=== PATIENT | male | born 1935 | race Caucasian/White ===

== ENCOUNTER 2017-03-09 10:07 | Emergency (ER) | payer OTHER ==
[~2017-03-09] VITALS: Ht 170.2 cm; Wt 93.0 kg
[~2017-03-09 10:07] MED LIST: ARTHROTEC EC 71 EAC1 PO; ASPIRIN81 M2 PO; ATACAND HCT 321 EACH PO; CARDURA XL4 MG PO; CLARITIN10 MG PO; CLONADINE PO; FLONASE 0.05%50 MCG NASAL; GLUCOSAMINE1000 MG PO; LEVAQUIN 500 M500 M2 PO; LIPITOR10 MG PO; LOPRESSOR100 M1 PO; MUCUS RELIEF600 M1 PO; MULTIVITAMINS PO; NORCO 5-325 TA1 EACH PO; OMEPRAZOLE20 MG PO; PREDNISONE 10 M10 MG PO; SINGULAIR 10 MG10 M1 PO; SPIRONOLACTONE25 M1 PO; TOPROL XL50 MG PO; TYLENOL PM EX-1 EACH
[2017-03-09 11:54] VITALS: BP 161/84
== END 2017-03-09 11:45 | disposition home or self-care (01) ==
LOC: ER 10:07
DX: S01.01XA Laceration without foreign body of scalp, initial encounter (principal); I10 Essential (primary) hypertension; N40.0 Benign prostatic hyperplasia without lower urinary tract symptoms; E78.00 Pure hypercholesterolemia, unspecified; M19.90 Unspecified osteoarthritis, unspecified site; K21.9 Gastro-esophageal reflux disease without esophagitis; Z98.890 Other specified postprocedural states; W00.9XXA Unspecified fall due to ice and snow, initial encounter; Y93.89 Activity, other specified; Y92.89 Other specified places as the place of occurrence of the external cause; Y99.8 Other external cause status

== ENCOUNTER 2017-03-17 14:32 | Emergency (ER) | payer OTHER ==
[~2017-03-17] VITALS: Ht 170.2 cm; Wt 95.3 kg
[2017-03-17 14:51] VITALS: BP 202/91
== END 2017-03-17 14:54 | disposition home or self-care (01) ==
LOC: ER 14:32
DX: S01.81XD Laceration without foreign body of other part of head, subsequent encounter (principal); I10 Essential (primary) hypertension; N40.0 Benign prostatic hyperplasia without lower urinary tract symptoms; M19.90 Unspecified osteoarthritis, unspecified site; K21.9 Gastro-esophageal reflux disease without esophagitis; E78.00 Pure hypercholesterolemia, unspecified; Z96.653 Presence of artificial knee joint, bilateral; X58.XXXD Exposure to other specified factors, subsequent encounter

== ENCOUNTER 2020-09-15 06:17 | Emergency (ER) | payer OTHER ==
[~2020-09-15] VITALS: Ht 167.6 cm; Wt 93.0 kg
[2020-09-15] MEDS ORDERED: CLONIDINE HCL0.1 MG PO (06:37)
[2020-09-15] MEDS ORDERED: ALEVE220 MG PO (06:38)
--- NOTE | 2020-09-15 07:11 | EKG ---
[place] [address] [facility] [place] [address] ELECTROCARDIOGRAM REPORT Name: CINDYTERENCEVASILE PISANO Room #: PRE [facility]..#: [id number] Admission: Attend Phys: Discharge: Date of : 37 Report #: [id number] [facility] ED Test Date: 2020-09-15 Test Time: 06:42:50 Pat Name: TERENCE WHITE Department: Room: Gender: C Consultant: [place] : 1935 Requested By: Brandy Roblero Order Number: [id number] MD: Tony Zambrano Measurements Intervals [place] Rate: 65 P: 32 AK: 238 QRS: -30 QRSD: 99 T: 10 QT: 405 QTc: 422 Interpretive Statements Sinus rhythm Prolonged [place] interval Inferior infarct, old Compared to ECG 09/18/2014 16:59:47 First degree AV block now present Myocardial infarct finding still present Electronically Signed On 09-15-2020 7:11:48 CDT by Tony Zambrano [email or web address] <ELECTRONICALLY SIGNED> By: Tony Zambrano MD, [facility] 09/15/20 0711 [id number] Tony Zambrano MD, FACC /EPI
[2020-09-15 08:21] LABS: HEMATOCRIT 31.7 % (42.0-52.0); HEMOGLOBIN 10.7 gm/dL (14.0-18.0); MCH 30.5 pg (26.0-34.0); MCHC 33.7 g/dL (28.0-37.0); MCV 90.5 fL (80.0-100.0); RBC 3.51 mil/uL (4.50-6.00); RDW 14.8 % (10.5-14.5); WBC 6.5 thou/uL (4.0-11.0)
[2020-09-15 09:27] LABS: ANION GAP 9 mmol/L (7-16); BUN 28 mg/dL (7-18); CALCIUM 7.9 mg/dL (8.5-10.1); CHLORIDE 102 mmol/L (98-107); CO2 24 mmol/L (21-32); CREATININE 1.3 mg/dL (0.7-1.3); GLUCOSE 119 mg/dL (74-106); POTASSIUM 4.9 mmol/L (3.5-5.1); SODIUM 135 mmol/L (136-145)
[2020-09-15 09:36] LABS: ALBUMIN 3.5 g/dL (3.4-5.0); DIRECT BILIRUBIN 0.1 mg/dL (<0.1-0.2); SGOT 13 U/L (15-37); SGPT 18 U/L (16-63); TOTAL BILIRUBIN 0.5 mg/dL (0.2-1.0); TOTAL PROTEIN 6.1 g/dL (6.4-8.2); TROPONIN-I <0.06 ng/mL (<0.06)
[2020-09-15 10:44] VITALS: BP 151/68
== END 2020-09-15 10:44 | disposition home or self-care (01) ==
LOC: ER 06:17
PROVIDERS: Emergency Medicine
DX: I10 Essential (primary) hypertension (principal); K21.9 Gastro-esophageal reflux disease without esophagitis; Z79.82 Long term (current) use of aspirin; Z79.899 Other long term (current) drug therapy; Z98.890 Other specified postprocedural states

== ENCOUNTER 2020-09-27 20:33 | Inpatient (IN) | payer OTHER ==
[~2020-09-27] VITALS: Ht 167.6 cm; Wt 94.8 kg
[~2020-09-27 20:33] MED LIST changes: +ALEVE220 MG PO; +CLONIDINE HCL0.1 MG PO
[2020-09-27 20:40] VITALS: BP 127/80
[2020-09-27] MEDS ORDERED: ATACAND HCT 321 EACH PO (21:11)
[2020-09-27] MEDS ORDERED: NORVASC5 MG PO (21:11)
[2020-09-27] MEDS ORDERED: LIPITOR 10 MG10 M1 PO (21:12)
[2020-09-27] MEDS ORDERED: CARDURA8 MG PO (21:12)
[2020-09-27] MEDS ORDERED: LOPRESSOR50 MG PO (21:13)
[2020-09-27] MEDS ORDERED: OMEPRAZOLE 20 M20 M1 PO (21:13)
[2020-09-27 21:31] LABS: ANION GAP 12 mmol/L (7-16); BUN 25 mg/dL (7-18); CALCIUM 7.5 mg/dL (8.5-10.1); CHLORIDE 96 mmol/L (98-107); CO2 22 mmol/L (21-32); CREATININE 1.7 mg/dL (0.7-1.3); GLUCOSE 210 mg/dL (74-106); POTASSIUM 3.4 mmol/L (3.5-5.1); SODIUM 130 mmol/L (136-145)
[2020-09-27 21:41] LABS: ALBUMIN 2.9 g/dL (3.4-5.0); SGOT 56 U/L (15-37); SGPT 91 U/L (30-65); TOTAL BILIRUBIN 0.6 mg/dL (0.2-1.0); TOTAL PROTEIN 6.3 g/dL (6.4-8.2); TROPONIN-I <0.06 ng/mL (<0.06)
[2020-09-28] MEDS ORDERED: SUPER THERAVIT1 EACH PO (00:30)
[2020-09-28] MEDS ORDERED: ASA81BEC PO (00:30)
[2020-09-28] MEDS ORDERED: ALEVE220 MG PO (00:30)
[2020-09-28] MEDS ORDERED: TYLENOL PM EX-1 EACH PO (00:31)
[2020-09-28 05:32] LABS: HEMATOCRIT 26.6 % (42.0-52.0); HEMOGLOBIN 9.1 gm/dL (14.0-18.0); MCHC 34.3 g/dL (28.0-37.0); MCV 90.3 fL (80.0-100.0); RBC 2.95 mil/uL (4.50-6.00); RDW 14.8 % (10.5-14.5); WBC 7.3 thou/uL (4.0-11.0)
[2020-09-28 06:33] LABS: ALBUMIN 2.6 g/dL (3.4-5.0); ANION GAP 10 mmol/L (7-16); BUN 27 mg/dL (7-18); CALCIUM 7.3 mg/dL (8.5-10.1); CHLORIDE 99 mmol/L (98-107); CHOLESTEROL 124 mg/dL (<200); CO2 23 mmol/L (21-32); CREATININE 1.6 mg/dL (0.7-1.3); GLUCOSE 133 mg/dL (74-106); HDL CHOLESTEROL 38 mg/dL (>40); LDL CHOLESTEROL 68 mg/dL (<100); POTASSIUM 4.2 mmol/L (3.5-5.1); SERUM ASSESSMENT Clear; SGOT 37 U/L (15-37); SGPT 79 U/L (30-65); SODIUM 132 mmol/L (136-145); TC:HDL 3.3 Ratio (Not establshd); TOTAL BILIRUBIN 0.6 mg/dL (0.2-1.0); TOTAL PROTEIN 5.7 g/dL (6.4-8.2); TRIGLYCERIDE 90 mg/dL (<150); VLDL 18 mg/dL (<40)
--- NOTE | 2020-09-28 07:17 | NUR ---
TOOK OVER CARE FROM SRUTHI ORTIZ AT THIS TIME
--- NOTE | 2020-09-28 08:09 | NUR ---
CARDIOLOGY AT BEDSIDE AT THIS TIME
[2020-09-28] MEDS ORDERED: XARELTO15 MG PO (10:25)
--- NOTE | 2020-09-28 12:07 | 2DMMODE ---
[facility] [address] 2 D/M-MODE ECHOCARDIOGRAM Name: TERENCE WHITE Room #: 170-14 ADM IN M.R.#: [id number] Admission: 09/27/20 Attend Phys: Fortino Davies MD Discharge: Date of : 37 Report #: [id number] THIS REPORT FOR: cc: Altaf Pineda Jr., MD, Jr.,Myron Gross MD, MD [facility] ~ APPROVED REPORT Study performed: 09/28/2020 08:30:31 EXAM: Comprehensive 2D, Doppler, and color-flow Echocardiogram Patient Location: ER Room #: 10 Status: routine BSA: 2.04 HR: 80 bpm BP: 120/59 mmHg Rhythm: Atrial Fibrillation Other Information Study Quality: Good Indications Atrial Fibrillation Hypertension/HDD 2D Dimensions IVSd: 14.50 (7-11mm) LVOT Diam: 21.66 (18-24mm) LVDd: 40.85 mm PWd: 13.53 (7-11mm) Ascending Ao: 32.89 (22-36mm) LVDs: 27.44 (25-40mm) Left Atrium: 53.09 (27-40mm) Aortic Root: 30.87 mm IVC: 23.00 mm Volumes Left Atrial Volume (Systole) Single Plane 4CH: 102.77 mL Single Plane 2CH: 67.12 mL LA ESV Index: 45.00 mL/m2 Aortic Valve AoV Peak Bear.: 2.25 m/s AO Peak Gr.: 20.27 mmHg LVOT Max P.24 mmHg AO Mean Gr.: 10.82 mmHg LVOT Mean P.89 mmHg AO V2 Mean: 1.54 m/s LVOT Max V: 1.26 m/s [facility] [place] [address] 2 D/M-MODE ECHOCARDIOGRAM Name: TERENCE WHITE NORRIS Room #: [facility]-14 [facility] IN ..#: [id number] Admission: 09/27/20 Attend Phys: Fortino Davies, Discharge: Date of : 37 Report #: [id number] AO V2 VTI: 48.68 cm LVOT Mean V: 0.94 m/s THADDEUS (VTI): 2.63 cm2 LVOT V1 VTI: 34.73 cm THADDEUS Vmax: 2.07 cm2 SV (LVOT): 127.96 mL Pulmonary Valve PV Peak Bear.: 1.30 m/s PV Peak Gr.: 6.76 mmHg Tricuspid Valve TR Peak Bear.: 3.03 m/s TR Peak Gr.: 36.80 mmHg PA Pressure: 47.00 mmHg Left Ventricle The left ventricle is normal size. There is normal LV segmental wall motion. Mild concentric left ventricular hypertrophy. The left ventricular systolic function is normal. The left ventricular ejection fraction is within the normal range. LVEF is 60-65%. This study is not technically sufficient to allow evaluation of the LV diastolic function due to atrial fibrillation. Right Ventricle The right ventricle is normal size. The right ventricular systolic function is normal. Atria Left atrium is dilated. Right atrium is borderline dilated. Aortic Valve The aortic valve is normal in structure. Aortic valve is calcified. No aortic regurgitation is present. No hemodynamically significant valvular aortic stenosis. Mitral Valve The mitral valve is normal in structure. Trace mitral regurgitation. No evidence of mitral valve stenosis. Tricuspid Valve The tricuspid valve is normal in structure. There is trace tricuspid regurgitation. Estimated PAP 47 mmHg. There is moderate pulmonary hypertension. Pulmonic Valve The pulmonary valve is normal in structure. There is no pulmonic valvular regurgitation. [facility] [address] [place] [address] 2 D/M-MODE ECHOCARDIOGRAM Name: TERENCE WHITE Room #: 170-14 [facility] IN .R.#: [id number] Admission: 09/27/20 Attend Phys: Fortino Davies, Discharge: Date of : 37 Report #: [id number] Great Vessels The aortic root is normal in size. IVC is dilated and collapses >50% with inspiration. Pericardium There is no pericardial effusion. <Conclusion> The left ventricle is normal size. Mild concentric left ventricular hypertrophy. LVEF is 60-65%. This study is not technically sufficient to allow evaluation of the LV diastolic function due to atrial fibrillation. The right ventricle is normal size. Left atrium is dilated. Right atrium is borderline dilated. The aortic valve is normal in structure. Aortic valve is calcified. No hemodynamically significant valvular aortic stenosis. Trace mitral regurgitation. There is trace tricuspid regurgitation. Estimated PAP 47 mmHg. There is moderate pulmonary hypertension. The aortic root is normal in size. There is no pericardial effusion. <ELECTRONICALLY SIGNED> By: Myron Cox MD, [facility] 09/28/201206 06 06 Myron Cox MD, FACC /INF
--- NOTE | 2020-09-28 13:06 | EKG ---
[address] [address] ELECTROCARDIOGRAM REPORT Name: CINDYTERENCEVASILE PISANO Room #: 170-14 ADM IN M.R.#: [id number] Admission: 09/27/20 Attend Phys: Fortino Davies MD Discharge: Date of : 37 Report #: [id number] 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: : 1935 Requested By: Jayant Ambriz Order Number: [id number] MD: Tony Zambrano Measurements Intervals [place] Rate: 104 P: [place]: QRS: -37 QRSD: 96 T: 38 QT: 347 QTc: 457 Interpretive Statements Atrial fibrillation Ventricular premature complex Left axis deviation Compared to ECG 09/15/2020 06:42:50 Ventricular premature complex(es) now present Left-axis deviation now present Sinus rhythm no longer present First degree AV block no longer present Myocardial infarct finding no longer present Electronically Signed On 09-28-2020 13:06:47 CDT by Tony Zambrano [email or web address] <ELECTRONICALLY SIGNED> By: Tony Zambrano MD, FAC 09/28/20 1306 51 51 Tony Zambrano MD, [facility] /EPI
[2020-09-28 17:46] VITALS: BP 135/60
[2020-09-28 17:59] VITALS: BP 140/61
[2020-09-29 00:06] LABS: GLYCOHEMOGLOBIN (HGB A1C) 6.3 % (4.8-5.6)
[2020-09-30] MEDS ORDERED: TYLENOL PM EX-1 EACH PO (11:53)
[2020-10-02] MEDS ORDERED: PACERONE 200 M200 M1 PO (07:26)
== END 2020-09-28 18:20 | disposition home or self-care (01) | DRG 309 ==
LOC: ER 20:33 → EROBS 22:07
PROVIDERS: Nurse Practitioner Family; Student in an Organized Health Care Education/Training Program; ADMIT Internal Medicine; ATTEND Internal Medicine
DX: I48.91 Unspecified atrial fibrillation (principal); N17.9 Acute kidney failure, unspecified; Z96.653 Presence of artificial knee joint, bilateral; I10 Essential (primary) hypertension; N40.0 Benign prostatic hyperplasia without lower urinary tract symptoms; M19.90 Unspecified osteoarthritis, unspecified site; K21.9 Gastro-esophageal reflux disease without esophagitis; E78.5 Hyperlipidemia, unspecified; Z79.82 Long term (current) use of aspirin; Z90.49 Acquired absence of other specified parts of digestive tract; Z85.46 Personal history of malignant neoplasm of prostate; Z92.3 Personal history of irradiation; Z79.899 Other long term (current) drug therapy
CPT/HCPCS: 10081

== ENCOUNTER 2020-10-02 13:49 | Emergency (ER) | payer OTHER ==
[~2020-10-02] VITALS: Ht 167.6 cm; Wt 104.3 kg
[~2020-10-02 13:49] MED LIST changes: +ASA81BEC PO; +CARDURA8 MG PO; +LIPITOR 10 MG10 M1 PO; +LOPRESSOR50 MG PO; +NORVASC5 MG PO; +OMEPRAZOLE 20 M20 M1 PO; +PACERONE 200 M200 M1 PO; +SUPER THERAVIT1 EACH PO; +TYLENOL PM EX-1 EACH PO; +XARELTO15 MG PO
[2020-10-02 14:00] VITALS: BP 146/63
== END 2020-10-02 14:34 | disposition home or self-care (01) ==
LOC: ER 13:49
DX: I80.9 Phlebitis and thrombophlebitis of unspecified site (principal); I10 Essential (primary) hypertension; E78.5 Hyperlipidemia, unspecified; M19.90 Unspecified osteoarthritis, unspecified site; K21.9 Gastro-esophageal reflux disease without esophagitis; Z85.46 Personal history of malignant neoplasm of prostate; Z90.49 Acquired absence of other specified parts of digestive tract; Z79.899 Other long term (current) drug therapy

== ENCOUNTER → 2020-10-11 | Outpatient (CLI) | payer OTHER | LOC: SJCVCIMAG 07:52 | PROVIDERS: ATTEND Internal Medicine Cardiovascular Disease | DX: I44.0 Atrioventricular block, first degree (principal); R00.0 Tachycardia, unspecified; I49.3 Ventricular premature depolarization; E78.5 Hyperlipidemia, unspecified; R06.00 Dyspnea, unspecified; I10 Essential (primary) hypertension; I48.91 Unspecified atrial fibrillation; Z79.899 Other long term (current) drug therapy; Z87.891 Personal history of nicotine dependence ==

== ENCOUNTER 2020-12-13 23:12 | Emergency (ER) | payer OTHER ==
[~2020-12-13] VITALS: Ht 167.6 cm; Wt 95.3 kg
[2020-12-14 01:01] VITALS: BP 155/63
== END 2020-12-14 01:02 | disposition home or self-care (01) ==
LOC: ER 23:12
DX: S01.311A Laceration without foreign body of right ear, initial encounter (principal); D68.318 Other hemorrhagic disorder due to intrinsic circulating anticoagulants, antibodies, or inhibitors; I48.91 Unspecified atrial fibrillation; I10 Essential (primary) hypertension; E78.5 Hyperlipidemia, unspecified; M19.90 Unspecified osteoarthritis, unspecified site; K21.9 Gastro-esophageal reflux disease without esophagitis; Z85.46 Personal history of malignant neoplasm of prostate; Z98.890 Other specified postprocedural states; Z90.49 Acquired absence of other specified parts of digestive tract; Z79.899 Other long term (current) drug therapy; Z79.891 Long term (current) use of opiate analgesic; Z79.1 Long term (current) use of non-steroidal anti-inflammatories (NSAID); W06.XXXA Fall from bed, initial encounter; Y93.89 Activity, other specified; Y92.89 Other specified places as the place of occurrence of the external cause; Y99.8 Other external cause status

== ENCOUNTER → 2021-01-08 | Outpatient (CLI) | payer OTHER | LOC: SJCVC 10:15 | PROVIDERS: ATTEND Internal Medicine Cardiovascular Disease | DX: R94.31 Abnormal electrocardiogram [ECG] [EKG] (principal); I48.0 Paroxysmal atrial fibrillation; I10 Essential (primary) hypertension; E78.00 Pure hypercholesterolemia, unspecified; R00.2 Palpitations; K21.9 Gastro-esophageal reflux disease without esophagitis; Z87.891 Personal history of nicotine dependence; Z72.89 Other problems related to lifestyle; Z79.82 Long term (current) use of aspirin; Z79.899 Other long term (current) drug therapy ==

== ENCOUNTER 2021-02-23 17:26 | Inpatient (IN) | payer OTHER ==
[~2021-02-23] VITALS: Ht 167.6 cm; Wt 99.6 kg
[2021-02-23 18:29] VITALS: BP 156/56
[2021-02-23 18:33] LABS: BASOPHILS 0.2 % (0.0-2.0); EOSINOPHILS 1.5 % (0.0-3.0); HEMATOCRIT 28.7 % (42.0-52.0); HEMOGLOBIN 9.6 gm/dL (14.0-18.0); LYMPHOCYTES 9.7 % (24.0-44.0); MCH 30.2 pg (26.0-34.0); MCHC 33.4 g/dL (28.0-37.0); MCV 90.4 fL (80.0-100.0); MONOCYTES 9.3 % (1.0-8.0); PLATELET COUNT 160 thou/uL (150-400); POLYS 79.3 % (36.0-66.0); RBC 3.17 mil/uL (4.50-6.00); RDW 13.9 % (10.5-14.5); WBC 7.6 thou/uL (4.0-11.0)
[2021-02-23 18:42] LABS: CREATININE 1.4 mg/dL (0.7-1.3)
[2021-02-23 18:43] LABS: CALCIUM 7.7 mg/dL (8.5-10.1); POTASSIUM 3.8 mmol/L (3.5-5.1)
[2021-02-23 18:47] LABS: APTT 47.5 Seconds (24.5-32.8); INR 1.2
[2021-02-23 18:54] LABS: ALBUMIN 2.5 g/dL (3.4-5.0)
[2021-02-23 18:56] LABS: TOTAL BILIRUBIN 0.3 mg/dL (0.2-1.0); TOTAL PROTEIN 5.7 g/dL (6.4-8.2)
[2021-02-23 21:28] LABS: URINE BILIRUBIN NEGATIVE (Negative); URINE BLOOD NEGATIVE (Negative); URINE CLARITY CLEAR; URINE COLOR YELLOW; URINE GLUCOSE-RANDOM* NEGATIVE (Negative); URINE KETONES NEGATIVE (Negative); URINE LEUKOCYTES-REFLEX NEGATIVE (Negative); URINE NITRITE-REFLEX NEGATIVE (Negative); URINE PROTEIN (DIPSTICK) NEGATIVE (Negative); URINE SPECIFIC GRAVITY 1.015 (1.005-1.035); URINE UROBILINOGEN 0.2 E.U./dl (0.2-1.0)
[2021-02-23 23:08] VITALS: BP 148/58
[2021-02-24 05:42] LABS: HEMATOCRIT 31.5 % (42.0-52.0); HEMOGLOBIN 10.5 gm/dL (14.0-18.0); MCH 30.3 pg (26.0-34.0); MCHC 33.5 g/dL (28.0-37.0); MCV 90.6 fL (80.0-100.0); RBC 3.48 mil/uL (4.50-6.00); RDW 13.5 % (10.5-14.5); WBC 5.7 thou/uL (4.0-11.0)
[2021-02-24 06:01] LABS: ALBUMIN 2.7 g/dL (3.4-5.0); CALCIUM 8.1 mg/dL (8.5-10.1); CREATININE 1.5 mg/dL (0.7-1.3); POTASSIUM 4.5 mmol/L (3.5-5.1); TOTAL BILIRUBIN 0.3 mg/dL (0.2-1.0); TOTAL PROTEIN 6.6 g/dL (6.4-8.2)
[2021-02-24 10:00] VITALS: BP 135/60
[2021-02-24 14:00] VITALS: BP 139/58
[2021-02-24 18:00] VITALS: BP 136/58
[2021-02-25 05:08] LABS: ABSOLUTE NEUTROPHILS 11.4 thou/uL (1.4-8.2); BASOPHILS 0.1 % (0.0-2.0); HEMATOCRIT 27.7 % (42.0-52.0); HEMOGLOBIN 9.3 gm/dL (14.0-18.0); MCH 29.7 pg (26.0-34.0); MCHC 33.3 g/dL (28.0-37.0); MONOCYTES 5.7 % (1.0-8.0); PLATELET COUNT 196 thou/uL (150-400); POLYS 89.2 % (36.0-66.0); RBC 3.12 mil/uL (4.50-6.00); RDW 13.4 % (10.5-14.5); WBC 12.8 thou/uL (4.0-11.0)
[2021-02-25 05:26] LABS: ALBUMIN 2.2 g/dL (3.4-5.0); CALCIUM 7.3 mg/dL (8.5-10.1); CREATININE 1.3 mg/dL (0.7-1.3); POTASSIUM 4.1 mmol/L (3.5-5.1); TOTAL BILIRUBIN 0.2 mg/dL (0.2-1.0); TOTAL PROTEIN 5.5 g/dL (6.4-8.2)
[2021-02-25 08:15] VITALS: BP 144/55
[2021-02-25 21:27] LABS: ABSOLUTE NEUTROPHILS 10.9 thou/uL (1.4-8.2); BASOPHILS 0.1 % (0.0-2.0); HEMATOCRIT 28.4 % (42.0-52.0); HEMOGLOBIN 9.5 gm/dL (14.0-18.0); MCH 29.9 pg (26.0-34.0); MCHC 33.5 g/dL (28.0-37.0); MCV 89.3 fL (80.0-100.0); PLATELET COUNT 219 thou/uL (150-400); POLYS 90.9 % (36.0-66.0); RBC 3.18 mil/uL (4.50-6.00); RDW 13.7 % (10.5-14.5); WBC 11.9 thou/uL (4.0-11.0)
[2021-02-25 22:06] LABS: HIV ANTIBODY Non Reactive (Non Reactive)
[2021-02-26 06:51] LABS: ABSOLUTE NEUTROPHILS 9.6 thou/uL (1.4-8.2); BASOPHILS 0.4 % (0.0-2.0); EOSINOPHILS 0.1 % (0.0-3.0); HEMOGLOBIN 9.1 gm/dL (14.0-18.0); LYMPHOCYTES 5.5 % (24.0-44.0); MCHC 33.8 g/dL (28.0-37.0); MCV 88.6 fL (80.0-100.0); MONOCYTES 6.1 % (1.0-8.0); PLATELET COUNT 216 thou/uL (150-400); POLYS 87.9 % (36.0-66.0); RBC 3.05 mil/uL (4.50-6.00); RDW 13.6 % (10.5-14.5); WBC 10.9 thou/uL (4.0-11.0)
--- NOTE | 2021-02-26 07:16 | EKG ---
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 : 1935 Requested By: Bear Mark Order Number: [id number] MD: Tony Zambrano Measurements Intervals [place] Rate: 66 P: 32 [place]: 227 QRS: -36 QRSD: 107 T: 12 QT: 421 QTc: 442 Interpretive Statements Sinus rhythm Prolonged [place] interval Inferior infarct, old Compared to ECG 09/30/2020 09:13:13 First degree AV block now present Myocardial infarct finding now present Atrial fibrillation no longer present Electronically Signed On 02-26-2021 7:16:13 [employer] by Tony Zambrano [email or web address] <ELECTRONICALLY SIGNED> By: Tony Zambrano MD, [facility] 02/26/21715 22 22 Tony Zambrano MD, [facility] /EPI
[2021-02-26 07:20] LABS: ALBUMIN 2.1 g/dL (3.4-5.0); CALCIUM 7.5 mg/dL (8.5-10.1); CREATININE 1.2 mg/dL (0.7-1.3); POTASSIUM 3.7 mmol/L (3.5-5.1); TOTAL BILIRUBIN 0.1 mg/dL (0.2-1.0); TOTAL PROTEIN 5.2 g/dL (6.4-8.2)
[2021-02-26 08:00] VITALS: BP 130/60
[2021-02-27 00:56] VITALS: BP 141/57
[2021-02-27 01:42] VITALS: BP 183/76
[2021-02-27 05:01] LABS: ALBUMIN 2.3 g/dL (3.4-5.0); CALCIUM 7.6 mg/dL (8.5-10.1); CREATININE 1.1 mg/dL (0.7-1.3); POTASSIUM 4.3 mmol/L (3.5-5.1); TOTAL BILIRUBIN 0.2 mg/dL (0.2-1.0); TOTAL PROTEIN 5.4 g/dL (6.4-8.2)
--- NOTE | 2021-02-27 05:08 | NUR ---
Arrived from ER around 0136. Tolerating room air well with O2 sat in the mid 90's. He verbalized being short of breath with exertion but has gotten better. Cont. on enhanced precaution , afebrile. Med rec verified with pt.
[2021-02-27 05:11] LABS: ABSOLUTE NEUTROPHILS 8.3 thou/uL (1.4-8.2); BASOPHILS 0.1 % (0.0-2.0); HEMOGLOBIN 9.3 gm/dL (14.0-18.0); LYMPHOCYTES 6.5 % (24.0-44.0); MCH 30.9 pg (26.0-34.0); MCHC 34.5 g/dL (28.0-37.0); MCV 89.4 fL (80.0-100.0); PLATELET COUNT 217 thou/uL (150-400); POLYS 87.4 % (36.0-66.0); RBC 3.02 mil/uL (4.50-6.00); RDW 13.7 % (10.5-14.5); WBC 9.5 thou/uL (4.0-11.0)
[2021-02-27 05:39] VITALS: BP 171/74
[2021-02-27 07:15] VITALS: BP 138/87
--- NOTE | 2021-02-27 14:49 | NUR ---
INITIAL ASSESSMENT: Received consult for discharge planning. JESSICA reviewed chart and spoke with nursing and attending physician. Pt was admitted from home due to COVID. Pt had positive home COVID test on 02/19. Pt has received the Moderna COVID vaccination. Pt is afebrile and not requiring O2. Pt is on IV meds and Remdesivir. PT/OT evals ordered today. JESSICA spoke with pt via phone. Introduced role of SW. Pt is alert/orientated x 4. Pt reports he lives at home with his grandson. Prior to admission, pt was independent with ADLs. No use of DME. 1 step to enter their home. No hx of services or post-acute placement. Pt's PCP is Dr. Altaf Pineda. Pt states he feels ready to go home today if possible. No discharge needs identified. Pt states he will have transportation home when discharged. JESSIAC updated attending physician, who will see pt soon. JESSICA is following to assist as needed with discharge planning.
[2021-02-27 14:54] VITALS: BP 157/60
--- NOTE | 2021-02-27 15:54 | NUR ---
RN ASSUMED PT'S CARE AT 0700AM, PT IS A&OX4, PT IS ON ROOM AIR, PT 'S O2SAT AND VS ARE STABLE BY THIS TIME, PT IS CONTINUING IV ABX AND TREAT COVID MEDICATIONS, PT GETS UP BATH ROOM WITHOUT ASSIST, PT DENIES PAIN AND SOB BY THIS TIME.
[2021-02-27] MEDS ORDERED: PREDNISONE 10 M10 M1 PO (16:58)
[2021-02-27] MEDS ORDERED: CEFDINIR300 MG PO (16:58)
[2021-02-27 17:04] VITALS: BP 157/60
--- NOTE | 2021-02-27 18:15 | NUR ---
RN RECEIVED ORDER TO DC PT TO HOME, PT UNDERSTANDS DC TEACHING WELL, INCLUDING NEW MEDICATIONS AND COVID ISOLATION , PT'S FAMILY EPIC MANAGER PT AT 1800PM.
--- NOTE | 2021-02-27 23:58 | HC ---
[facility] [place] [address] CONSULTATION Name: TERENCE WHITE Room #: 358-[facility] IN ..#: [id number] Admission: 02/23/21 Attend Phys: Estrada Cardona MD Discharge: 02/27/21 Date of : 37 Report #: [id number] THIS REPORT FOR: cc: Altaf Pineda Jr., MD, Jr., Samuel D. MD Geha, Daniel J. MD ~ DATE OF SERVICE: 02/24/2021 INFECTIOUS DISEASE CONSULTATION REASON FOR CONSULTATION: I was asked to evaluate concerning COVID-19 pneumonia. HISTORY OF PRESENT ILLNESS: The patient is an 85-year-old with a history of atrial fibrillation, status post cardioversion and use of amiodarone, previously vaccinated for COVID-19. The patient developed upper respiratory tract infection symptoms on 02/21. His son had developed symptoms prior to this, they both checked themselves and were negative initially, then patient checked his on 02/19, COVID antigen was positive. After this, he developed cough, congestion, low-grade fever, then progressive shortness of breath. He had 1 day of anosmia. Mild loose stools. No nausea, vomiting or abdominal pain. No rash or arthritis complaints. No myositis symptoms. No neurologic complaints. He has had cough with clear sputum. No hemoptysis or chest pain. Because of his progressive shortness of breath today, he presented to the Emergency Room for further evaluation where he was hypoxic, now on 3 liters of oxygen per nasal cannula. Chest x-ray showed bilateral infiltrates. The patient has no history of pneumonia, HIV infection or tuberculosis. REVIEW OF SYSTEMS: A 14-point review of system was negative other than what has been described above. ALLERGIES: None known. MEDICATIONS: As noted on his MAR, which were reviewed. PAST MEDICAL HISTORY: Bilateral total knee arthroplasties, bilateral cataract extractions, appendectomy, hypertension, BPH, hyperlipidemia, degenerative arthritis, gastroesophageal reflux, prostate cancer with radiation in 2018, past smoker, closed head injury, atrial fibrillation. FAMILY HISTORY: Diabetes and cancer. SOCIAL HISTORY: Past smoker. Daily alcohol intake. PHYSICAL EXAMINATION: GENERAL: He is afebrile and hemodynamically stable. He is alert, cooperative and pleasant. No acute distress. He is on 3 liters of oxygen per nasal [facility] [address] [place] [address] CONSULTATION Name: TERENCE WHITE NORRIS Room #: 358-[facility].#: [id number] Admission: 02/23/21 Attend Phys: Estrada Cardona MD Discharge: 02/27/21 Date of : 37 Report #: [id number] cannula. He is obese. SKIN: Without rash or decubitus. No palpable adenopathy. . HEENT: Eyes without scleral icterus. Mouth without mucositis. NECK: Supple. LUNGS: Crackles heard in the mid posterior chest and below. No consolidation. HEART: Regular, without murmur. ABDOMEN: Obese, soft and nontender with no hepatosplenomegaly or mass. He has a small ventral hernia. EXTREMITIES: Without clubbing, cyanosis or edema. NEUROLOGIC: Cranial nerves intact. Strength in the upper and lower extremities was symmetric and within normal limits. PSYCHIATRIC: Mood without anxiety. LABORATORY DATA: Notes a sodium of 130, creatinine 1.4. Liver function tests normal. BNP was 1280. CRP 213. Procalcitonin 0.09, hemoglobin 9.6. White count was 7.6, platelet count 160,000. Chest x-ray, bibasilar infiltrates. IMPRESSION: An 85-year-old with COVID-19 pneumonia due to severe acute respiratory syndrome coronavirus-2 in the setting of underlying hypertension, hyperlipidemia, atrial fibrillation, gastroesophageal reflux and history of prostate cancer. RECOMMENDATION: We will continue combination therapy with corticosteroids, remdesivir and antibiotics, pending culture results. If he should show further signs of decline, we then offer IL-6 inhibitor. We will control atrial fibrillation. Check serial laboratory studies and observed in the COVID isolation unit. Plan of care was discussed with the patient, who was in agreement. <ELECTRONICALLY SIGNED> By: David Diaz MD 02/27/21 2358 2044 2216 David Diaz MD /nt
[2021-03-01 16:36] LABS: T-SPOT.TB Negative
== END 2021-02-27 18:20 | disposition home or self-care (01) | DRG 177 ==
LOC: ER 17:26 → 3W 19:54 → EROBS 19:54 → 3W 02-27 00:07
PROVIDERS: Emergency Medicine; Nurse Practitioner Family; Specialist; ADMIT Hospitalist; ATTEND Hospitalist
PROC: XW033E5 Introduction of Remdesivir Anti-infective into Peripheral Vein, Percutaneous Approach, New Technology Group 5 (ICD-10-PCS; principal; 2021-02-23)
DX: U07.1 COVID-19 (principal); J12.82 Pneumonia due to coronavirus disease 2019; J80 Acute respiratory distress syndrome; N17.9 Acute kidney failure, unspecified; E87.1 Hypo-osmolality and hyponatremia; R78.81 Bacteremia; Z96.653 Presence of artificial knee joint, bilateral; I10 Essential (primary) hypertension; N40.0 Benign prostatic hyperplasia without lower urinary tract symptoms; E78.5 Hyperlipidemia, unspecified; K21.9 Gastro-esophageal reflux disease without esophagitis; I48.91 Unspecified atrial fibrillation; D64.9 Anemia, unspecified; B95.7 Other staphylococcus as the cause of diseases classified elsewhere; Z90.49 Acquired absence of other specified parts of digestive tract; Z85.46 Personal history of malignant neoplasm of prostate; Z92.3 Personal history of irradiation; Z87.828 Personal history of other (healed) physical injury and trauma; Z83.3 Family history of diabetes mellitus; Z87.891 Personal history of nicotine dependence; Z80.0 Family history of malignant neoplasm of digestive organs; Z79.899 Other long term (current) drug therapy